=== PATIENT | male | born 1950 | race Caucasian/White ===

== ENCOUNTER 2016-12-30 08:31 | Day surgery (SDC) | payer BC ==
--- NOTE | ~2016-12-30 | EGD ---
EGD REPORT [facility] [address] [place] [id number] NAME: BONG SUE : 54 STATUS : REG [facility]#: [id number] AGE: 66 ADM/REG DATE : 12/30/16 MR#: [id number] REPORT SERV DATE: 12/30/16 DICTATED BY: SUSANNAH LYNCH DATE: 12/30/16 REPORT STATUS : Draft TRANSCRIBED BY: [facility] DATE: 12/30/16 [facility] Patient Name: Bong Sue Date of : 1950 Attending MD: SUSANNAH LYNCH MD Procedure Date No Time: 12/30/2016 Procedure: Colonoscopy Indications: Screening for colorectal malignant neoplasm Referring MD: Adela SAN MD Medicines: as per anesthesia Complications: No immediate complications. Procedure: Pre-Anesthesia Assessment: - ASA Grade Assessment: III - A patient with severe systemic disease. After I obtained informed consent, the scope was passed under direct vision. Throughout the procedure, the patient's blood pressure, pulse, and oxygen saturations were monitored continuously. The PCF [id number] was introduced through the anus and advanced to the cecum, identified by appendiceal orifice and ileocecal valve. The colonoscopy was performed without difficulty. The patient tolerated the procedure. The quality of the bowel preparation was adequate to identify polyps. Findings: The perianal and digital rectal examinations were normal. Many small and large-mouthed diverticula were found in the sigmoid colon. Internal hemorrhoids were found during endoscopy and were mild. Impression: - Diverticulosis in the sigmoid colon. - Internal hemorrhoids. Recommendation: - Repeat colonoscopy in 10 years for surveillance. Procedure Code(s): --- Professional --- 19075, Colonoscopy, flexible, proximal to splenic flexure; diagnostic, with or without collection of specimen(s) by brushing or washing, with or without colon decompression (separate procedure) Diagnosis Code(s): --- Professional --- K64.8, Other hemorrhoids K57.30, Diverticulosis of large intestine without perforation or abscess without bleeding Z12.11, Encounter for screening for malignant neoplasm EGD REPORT [facility] [address] [id number] NAME: BONG SUE : [birth year] STATUS : REG [facility] [place] PAT#: [id number] AGE: 66 ADM/REG DATE : 12/30/16 MR#: [id number] REPORT SERV DATE: 12/30/16 DICTATED BY: SUSANNAH LYNCH. DATE: 12/30/16 REPORT STATUS : Draft TRANSCRIBED BY: [employer] DATE: 12/30/16 of colon CPT copyright 2013 [employer]. All rights reserved. The codes documented in this report are preliminary and upon hydroelectric operator review may be revised to meet current compliance requirements. SUSANNAH LYNCH MD 12/30/2016 10:56 AM This report has been signed electronically. Number of Addenda: 0 Note Initiated On: 12/30/2016 10:29 AM Scope Withdrawal Time 0 hours 7 minutes 19 seconds [id number] [id number]
[~2016-12-30 08:31] MED LIST: ALBUTEROL0.083 % INH; ASABAYER PO; ATEN25 PO; ATV.5 PO; BREO ELLIPTA 21 EACH INH; FISH-EPA1000 MG PO; FLONASE NAS; MULTIVIT/MIN PO; PAZEO2.5 ML OPH; PROAIR HFA INH; ZOCOR20 PO; ZYRTEC ALLGY10 MG PO
[2017-03-09] MEDS ORDERED: [UNRECOGNIZED DRUG - OTHER] PO (12:04)
== END 2016-12-30 23:59 | disposition home health service (06) ==
LOC: DMU 08:31
PROVIDERS: Internal Medicine Gastroenterology
PROC: 0DJD8ZZ Inspection of Lower Intestinal Tract, Via Natural or Artificial Opening Endoscopic (ICD-10-PCS; principal; 2016-12-30 10:00)
DX: Z12.11 Encounter for screening for malignant neoplasm of colon (principal); K64.8 Other hemorrhoids; K57.30 Diverticulosis of large intestine without perforation or abscess without bleeding; J45.909 Unspecified asthma, uncomplicated; E78.00 Pure hypercholesterolemia, unspecified; F41.9 Anxiety disorder, unspecified; I10 Essential (primary) hypertension; Z95.1 Presence of aortocoronary bypass graft; Z88.8 Allergy status to other drugs, medicaments and biological substances; Z79.82 Long term (current) use of aspirin; Z79.899 Other long term (current) drug therapy; Z87.891 Personal history of nicotine dependence; Z86.010 Personal history of colon polyps; Z98.890 Other specified postprocedural states